=== PATIENT | female | born 1960 | race Caucasian/White ===

== ENCOUNTER 2017-02-27 08:29 | Day surgery (SDC) | payer MEDICAID ==
[2017-02-26 10:01] LABS: CHLORIDE,CL 106 mmol/L (98-110); SODIUM,NA 140 mmol/L (136-146)
[~2017-02-27 08:29] MED LIST: Fluorescein 5 ML Vial ONE; Octyl 2-Cyanoacrylate 1 Tube ONE; Sodium Chloride 0.9% 10 ML Syringe FLUSH PRN; Sodium Chloride 0.9% 2.5 ML Syringe FLUSH PRN; ceFAZolin 2 GM in Premix Bag 1 BAG IV ONE
[2017-02-27] MEDS ORDERED: fentaNYL 100 MCG/2 ML SDV ONE ×2 (09:47→12:08)
[2017-02-27] MEDS ORDERED: HYDROmorphone 2 MG/ML Syringe ONE (09:47)
[2017-02-27] MEDS ORDERED: Propofol 200 MG/20 ML SDV ONE (09:47)
[2017-02-27] MEDS ORDERED: Midazolam 1 MG/ML 2 ML SDV ONE (09:47)
[2017-02-27] MEDS ORDERED: Ketorolac 30 MG/ML SDV ONE (09:50)
[2017-02-27] MEDS ORDERED: Ondansetron 4 MG/2 ML SDV ONE (09:50)
[2017-02-27] MEDS ORDERED: diphenhydrAMINE 50 MG/ML SDV ONE (09:50)
[2017-02-27] MEDS ORDERED: Neostigmine Methylsulfate 1 MG/ML 5 ML Syringe ONE (09:50)
[2017-02-27] MEDS ORDERED: Rocuronium 10 MG/ML 10 ML Syringe ONE (09:50)
[2017-02-27] MEDS ORDERED: Lidocaine 2% 5 ML SDV ONE (09:50)
[2017-02-27] MEDS ORDERED: Metoclopramide 10 MG/2 ML SDV ONE (09:50)
[2017-02-27] MEDS: Lactated Ringers 1,000 ML IV SCH ×2 (09:55→15:29)
--- NOTE | 2017-02-27 10:08 | PCM.PREANE ---
Preanesthetic Assessment - Anesthesia/Transfusion/Family Hx Anesthesia History: Prior Anesthesia Without Reaction Family History of Anesthesia Reaction: No Transfusion History: No Prior Transfusion(s) - Review of Systems General: No Symptoms Pulmonary: No Symptoms Cardiovascular: No Symptoms Gastrointestinal: No Symptoms Neurological: No Symptoms Other: Reports: None - Physical Assessment NPO Status Date: 02/26/17 O2 Sat by Pulse Oximetry: 97 Respiratory Rate: 16 Vital Signs: Last Vital Signs Temp 36.7 C 02/27/17 09:54 Pulse 77 02/27/17 09:54 Resp 16 02/27/17 09:54 BP 148/84 H 02/27/17 09:54 Pulse Ox 97 02/27/17 09:54 Height: 1.68 m Weight: 132.903 kg ASA Class: 2 Mental Status: Alert & Oriented x3 Airway Class: Mallampati = 2 Dentition: Reports: Normal Dentition ROM/Head Extension: Full Lungs: Clear to Auscultation, Normal Respiratory Effort Cardiovascular: Regular Rate, Regular Rhythm - Lab Values: Laboratory Last Values WBC 8.08 K/uL (4.0-11.0) 02/26/17 09:29 RBC 4.87 M/uL (4.30-5.90) 02/26/17 09:29 Hgb 15.0 g/dL (12.0-16.0) 02/26/17 09:29 Hct 43.4 % (36.0-46.0) 02/26/17 09:29 MCV 89.1 fL (80.0-98.0) 02/26/17 09:29 MCH 30.8 pg (27.0-32.0) 02/26/17 09:29 MCHC 34.6 g/dL (31.0-37.0) 02/26/17 09:29 RDW Std Deviation 43.0 fl (28.0-62.0) 02/26/17 09:29 RDW Coeff of [place] 13 % (11.0-15.0) 02/26/17 09:29 Plt Count 236 K/uL (150-400) 02/26/17 09:29 MPV 9.50 fL (7.40-12.00) 02/26/17 09:29 Nucleated RBC % 0.0 /100WBC 02/26/17 09:29 Nucleated RBCs # 0 K/uL 02/26/17 09:29 Sodium 140 mmol/L (136-146) 02/26/17 09:29 Potassium 4.1 mmol/L (3.5-5.1) 02/26/17 09:29 Chloride 106 mmol/L (98-110) 02/26/17 09:29 Carbon Dioxide 24 mmol/L (21-31) 02/26/17 09:29 BUN 12 mg/dL (6.0-23.0) 02/26/17 09:29 Creatinine 0.8 mg/dL (0.6-1.5) 02/26/17 09:29 Est Cr Clr Drug Dosing 74.38 mL/min 02/26/17 09:29 Estimated GFR (MDRD) > 60.0 ml/min 02/26/17 09:29 Glucose 92 mg/dL (60-110) 02/26/17 09:29 Calcium 9.5 mg/dL (8.8-10.8) 02/26/17 09:29 HCG, Qual NEGATIVE (NEG) 02/26/17 09:29 Blood Type O NEGATIVE 02/26/17 09:29 Antibody Screen NEGATIVE 02/26/17 09:29 - Allergies Allergies/Adverse Reactions: Allergies Allergy/AdvReac Type Severity Reaction Status Date / Time amoxicillin [From Augmentin] Allergy Stomach Verified 02/24/17 09:50 Upset clavulanic acid Allergy Stomach Verified 02/24/17 09:50 [From Augmentin] Upset codeine Allergy Stomach Verified 02/24/17 09:50 Upset - Anesthesia Plan Pre-Op Medication Ordered: None - Acknowledgements Anesthesia Type Planned: General Anesthesia Pt an Appropriate Candidate for the Planned Anesthesia: Yes Alternatives and Risks of Anesthesia Discussed w Pt/Guardian: Yes Pt/Guardian Understands and Agrees with Anesthesia Plan: Yes PreAnesthesia Questionnaire HEENT History: Reports: Other (See Below) Other HEENT History: wears glasses Cardiovascular History: Reports: Hypertension, Other (See Below) Other Cardiovascular History: occasionally has edema to lower extremities Gastrointestinal History: Reports: Other (See Below) Other Gastrointestinal History: occasional heartburn Genitourinary History: Reports: None CENSUS ENUMERATOR History: Reports: Musculoskeletal History: Reports: Arthritis Psychiatric History: Reports: None Endocrine/Metabolic History: Reports: Obesity/BMI 30+ Dermatologic History: Reports: Eczema - Past Surgical History Head Surgeries/Procedures: Reports: None Female Surgical History: Reports: Section - SUBSTANCE USE Smoking Status *Q: Former Smoker Tobacco Use Within Last Twelve Months: Cigarettes Recreational Drug Use History: No - HOME MEDS Home Medications: Home Meds Valsartan 80 mg PO DAILY 04/12/16 [History] Ibuprofen [Motrin] 1 - 2 tab PO Q6H PRN 02/24/17 [History] - CURRENT (IN HOUSE) MEDS Current Meds: Current Medications Lactated Ringer's (Ringers, Lactated) 1,000 mls @ 125 mls/hr IV ASDIRECTED JING Last Admin: 02/27/17 09:55 Dose: 125 mls/hr Sodium Chloride (Saline Flush) 10 ml FLUSH ASDIRECTED PRN PRN Reason: Keep Vein Open Sodium Chloride (Saline Flush) 2.5 ml FLUSH ASDIRECTED PRN PRN Reason: Keep Vein Open Discontinued Medications Diphenhydramine HCl (Benadryl) Confirm Administered Dose 50 mg .ROUTE .STK-MED ONE Stop: 02/27/17 09:51 Fentanyl (Sublimaze) Confirm Administered Dose 100 mcg .ROUTE .STK-MED ONE Stop: 02/27/17 09:48 Fluorescein Sodium (Ak-Fluor) Confirm Administered Dose 5 ml .ROUTE .STK-MED ONE Stop: 02/27/17 07:43 Glycopyrrolate () Confirm Administered Dose 1 mg .ROUTE .STK-MED ONE Stop: 02/27/17 09:51 Hydromorphone HCl (Dilaudid) Confirm Administered Dose 2 mg .ROUTE .STK-MED ONE Stop: 02/27/17 09:48 Cefazolin Sodium/Dextrose 2 gm (/ Premix) 50 mls @ 100 mls/hr IV ONETIME ONE Stop: 02/26/17 09:32 Ketorolac Tromethamine (Toradol) Confirm Administered Dose 30 mg .ROUTE .STK- MED ONE Stop: 02/27/17 09:51 Lidocaine (Xylocaine-Mpf 2%) Confirm Administered Dose 5 ml .ROUTE .STK-MED ONE Stop: 02/27/17 09:51 Metoclopramide HCl (Reglan) Confirm Administered Dose 10 mg .ROUTE .STK-MED ONE Stop: 02/27/17 09:51 Midazolam HCl (Versed 1 Mg/Ml) Confirm Administered Dose 2 mg .ROUTE .STK-MED ONE Stop: 02/27/17 09:48 Neostigmine Methylsulfate (Neostigmine) Confirm Administered Dose 5 mg .ROUTE .STK-MED ONE Stop: 02/27/17 09:51 Octyl Cyanoacrylate (Dermabond Advance) Confirm Administered Dose 1 applic .ROUTE .STK-MED ONE Stop: 02/27/17 07:43 Ondansetron HCl (Zofran) Confirm Administered Dose 4 mg .ROUTE .STK-MED ONE Stop: 02/27/17 09:51 Propofol (Diprivan 20 Ml) Confirm Administered Dose 200 mg .ROUTE .STK-MED ONE Stop: 02/27/17 09:48 Rocuronium [place] (Zemuron) Confirm Administered Dose 100 mg .ROUTE .STK-MED ONE Stop: 02/27/17 09:51
[2017-02-27] MEDS ORDERED: ceFAZolin 1 GM Vial ONE (11:19)
[2017-02-27] MEDS ORDERED: Phenylephrine/Normal Saline 100 MCG/ML 10 ML Syringe ONE (11:25)
[2017-02-27] MEDS ORDERED: Promethazine 25 MG/ML SDV IM PRN (12:52)
[2017-02-27] MEDS ORDERED: Ondansetron 4 MG/2 ML SDV IVPUSH PRN (12:52)
[2017-02-27] MEDS ORDERED: Ketorolac 30 MG/ML SDV IVPUSH PRN (12:52)
[2017-02-27] MEDS ORDERED: Ketorolac 30 MG/ML SDV IVPUSH ONE (12:52)
[2017-02-27] MEDS ORDERED: Morphine 4 MG/ML Syringe IVPUSH PRN (12:52)
[2017-02-27] MEDS ORDERED: Acetaminophen/oxyCODONE 325-5 MG Tab PO PRN ×2 (12:52)
[2017-02-27] MEDS ORDERED: Morphine 2 MG/ML Syringe IVPUSH PRN (12:52)
[2017-02-27] MEDS: fentaNYL 100 MCG/2 ML SDV IVPUSH PRN ×4 (13:32→13:57)
--- NOTE | 2017-02-27 13:37 | PCM.POSTAN ---
POST ANESTHESIA ASSESSMENT - MENTAL STATUS Mental Status: Alert, Oriented - RESPIRATORY Respiratory Status: Respiratory Rate WNL, Airway Patent, O2 Saturation Stable - CARDIOVASCULAR CV Status: Pulse Rate WNL, Blood Pressure Stable - GASTROINTESTINAL GI Status: No Symptoms - POST OP HYDRATION Hydration Status: Adequate & Stable
--- NOTE | 2017-02-27 15:30 | PCM.OPNOTE ---
- General Post-Op/Procedure Note Date of Surgery/Procedure: 02/27/17 Operative Procedure(s): Diagnostic laparoscopy, lysis of adhesion Pre Op Diagnosis: Menometrorrhagia Post-Op Diagnosis: Same Anesthesia Technique: General ET Tube Primary Surgeon: Rolan Kong Hadoop Infrastructure Architect: Stacy Escobar EBL in mLs: 100 Complications: None Condition: Good Free Text/Narrative:: Intake & Output 02/27/17 02/27/17 02/27/17 06:59 14:59 22:59 Intake Total 1750 Output Total 100 Balance 1650
--- NOTE | 2017-02-27 16:11 | PCM.DCSUM1 ---
Discharge Summary - Discharge Data Discharge Date: 02/27/17 Discharge Disposition: Home, Self-Care 01 Condition: Good - Patient Summary/Data Operative Procedure(s) Performed: Diagnostic laparoscopy, lysis of adhesion - Patient Instructions Diet: Usual Diet as Tolerated Activity: As Tolerated Wound/Incision Care: Keep Operative Site/Wound Site Clean and Dry Notify Provider of: Fever, Increased Pain, Nausea and/or Vomiting - Discharge Plan Home Medications: Home Meds Valsartan 80 mg PO DAILY 04/12/16 [History] Ibuprofen [Motrin] 1 - 2 tab PO Q6H PRN 02/24/17 [History] - General Info Date of Service: 02/27/17 Functional Status: Reports: Pain Controlled - Review of Systems General: Reports: No Symptoms HEENT: Reports: No Symptoms Pulmonary: Reports: No Symptoms Cardiovascular: Reports: No Symptoms Gastrointestinal: Reports: No Symptoms Genitourinary: Reports: No Symptoms Musculoskeletal: Reports: No Symptoms Skin: Reports: No Symptoms Neurological: Reports: No Symptoms Psychiatric: Reports: No Symptoms - Patient Data Vitals - Most Recent: Last Vital Signs Temp 36.2 C 02/27/17 13:11 Pulse 56 L 02/27/17 14:03 Resp 13 02/27/17 14:03 BP 143/69 H 02/27/17 14:03 Pulse Ox 93 L 02/27/17 14:03 Weight - Most Recent: 132.903 kg I&O - Last 24 hours: Intake & Output 02/27/17 02/27/17 02/27/17 06:59 14:59 22:59 Intake Total 1750 Output Total 100 Balance 1650 Med Orders - Current: Current Medications Lactated Ringer's (Ringers, Lactated) 1,000 mls @ 125 mls/hr IV ASDIRECTED JING Last Admin: 02/27/17 15:29 Dose: 125 mls/hr Ketorolac Tromethamine (Toradol) 30 mg IVPUSH Q6H PRN PRN Reason: Pain (severe 7-10) Stop: 03/04/17 12:52 Morphine Sulfate (Morphine) 2 mg IVPUSH Q2H PRN PRN Reason: Pain (severe 7-10) Morphine Sulfate (Morphine) 4 mg IVPUSH Q2H PRN PRN Reason: Pain (severe 7-10) Ondansetron HCl (Zofran) 4 mg IVPUSH Q6H PRN PRN Reason: Nausea/Vomiting Oxycodone/Acetaminophen (Percocet 325-5 Mg) 1 tab PO Q4H PRN PRN Reason: Pain (moderate 4-6) Oxycodone/Acetaminophen (Percocet 325-5 Mg) 2 tab PO Q4H PRN PRN Reason: Pain (moderate 4-6) Promethazine HCl (Phenergan) 25 mg IM Q6H PRN PRN Reason: Nausea/Vomiting Sodium Chloride (Saline Flush) 10 ml FLUSH ASDIRECTED PRN PRN Reason: Keep Vein Open Sodium Chloride (Saline Flush) 2.5 ml FLUSH ASDIRECTED PRN PRN Reason: Keep Vein Open Discontinued Medications Cefazolin Sodium (Ancef) Confirm Administered Dose 2 gm .ROUTE .STK-MED ONE Stop: 02/27/17 11:20 Diphenhydramine HCl (Benadryl) Confirm Administered Dose 50 mg .ROUTE .STK-MED ONE Stop: 02/27/17 09:51 Fentanyl (Sublimaze) Confirm Administered Dose 100 mcg .ROUTE .STK-MED ONE Stop: 02/27/17 09:48 Fentanyl (Sublimaze) 50 mcg IVPUSH Q5M PRN PRN Reason: Pain (severe 7-10) Stop: 02/27/17 16:00 Last Admin: 02/27/17 13:57 Dose: 50 mcg Fentanyl (Sublimaze) Confirm Administered Dose 100 mcg .ROUTE .STK-MED ONE Stop: 02/27/17 12:09 Fluorescein Sodium (Ak-Fluor) Confirm Administered Dose 5 ml .ROUTE .STK-MED ONE Stop: 02/27/17 07:43 Glycopyrrolate () Confirm Administered Dose 1 mg .ROUTE .STK-MED ONE Stop: 02/27/17 09:51 Hydromorphone HCl (Dilaudid) Confirm Administered Dose 2 mg .ROUTE .STK-MED ONE Stop: 02/27/17 09:48 Cefazolin Sodium/Dextrose 2 gm (/ Premix) 50 mls @ 100 mls/hr IV ONETIME ONE Stop: 02/26/17 09:32 Ketorolac Tromethamine (Toradol) Confirm Administered Dose 30 mg .ROUTE .STK- MED ONE Stop: 02/27/17 09:51 Ketorolac Tromethamine (Toradol) 30 mg IVPUSH ONETIME ONE Stop: 02/27/17 12:53 Lidocaine (Xylocaine-Mpf 2%) Confirm Administered Dose 5 ml .ROUTE .STK-MED ONE Stop: 02/27/17 09:51 Metoclopramide HCl (Reglan) Confirm Administered Dose 10 mg .ROUTE .STK-MED ONE Stop: 02/27/17 09:51 Midazolam HCl (Versed 1 Mg/Ml) Confirm Administered Dose 2 mg .ROUTE .STK-MED ONE Stop: 02/27/17 09:48 Neostigmine Methylsulfate (Neostigmine) Confirm Administered Dose 5 mg .ROUTE .STK-MED ONE Stop: 02/27/17 09:51 Octyl Cyanoacrylate (Dermabond Advance) Confirm Administered Dose 1 applic .ROUTE .STK-MED ONE Stop: 02/27/17 07:43 Ondansetron HCl (Zofran) Confirm Administered Dose 4 mg .ROUTE .STK-MED ONE Stop: 02/27/17 09:51 Phenylephrine HCl (Phenylephrine In Ns 100 Mcg/Ml) Confirm Administered Dose 1 mg .ROUTE .STK-MED ONE Stop: 02/27/17 11:26 Propofol (Diprivan 20 Ml) Confirm Administered Dose 200 mg .ROUTE .STK-MED ONE Stop: 02/27/17 09:48 Rocuronium [place] (Zemuron) Confirm Administered Dose 100 mg .ROUTE .STK-MED ONE Stop: 02/27/17 09:51 - Exam General: Reports: Alert, Oriented HEENT: Reports: Pupils Equal, Pupils Reactive, EOMI, Mucous Membr. Moist/[place] Neck: Reports: Supple Lungs: Reports: Clear to Auscultation, Normal Respiratory Effort Cardiovascular: Reports: Regular Rate, Regular Rhythm GI/Abdominal Exam: Normal Bowel Sounds, Soft, Non-Tender, No Organomegaly, No Distention, No Abnormal Bruit, No Mass, Pelvis Stable (Female) Exam: Normal External Exam, Normal Speculum Exam, Normal Bimanual Exam Rectal (Female) Exam: Normal Exam, Normal Rectal Tone Back Exam: Reports: Normal Inspection, Full Range of Motion Extremities: Normal Inspection, Normal Range of Motion, Non-Tender, No Pedal Edema, Normal Capillary Refill Skin: Reports: Warm, Dry, Intact Wound/Incisions: Reports: Healing Well Neurological: Reports: No New Focal Deficit Psy/Mental Status: Reports: Alert, Normal Affect, Normal Mood *Q Meaningful Use (DIS) - VTE *Q VTE Criteria *Q: - Stroke *Q Stroke Criteria *Q: - AMI *Q AMI Criteria *Q:
[2017-02-27 18:53] VITALS: BP 148/72
--- NOTE | 2017-02-27 19:14 | PCM48HPAN ---
Post Anesthesia Note - EVALUATION WITHIN 48HRS OF ANESTHETIC Vital Signs in Normal Range: Yes Patient Participated in Evaluation: Yes Respiratory Function Stable: Yes Airway Patent: Yes Cardiovascular Function Stable: Yes Hydration Status Stable: Yes Pain Control Satisfactory: Yes Nausea and Vomiting Control Satisfactory: Yes Mental Status Recovered: Yes
--- NOTE | 2017-02-27 21:20 | OR ---
SURGEON: Rolan Kong MD DATE OF PROCEDURE: PREOPERATIVE DIAGNOSES: Pelvic pain and menometrorrhagia. POSTOPERATIVE DIAGNOSES: Pelvic pain and menometrorrhagia. OPERATION PERFORMED: Multiple puncture diagnostic laparoscopy, lysis of adhesion, attempted to do total laparoscopic hysterectomy. REGIONAL ENGAGEMENT CONSULTANT: STEFFANY Ricks. ANESTHESIA: General endotracheal intubation. ESTIMATED BLOOD LOSS: 100 mL. COMPLICATIONS: None. FINDINGS: Extensive pelvic adhesion from her previous section which is done through a midline incision. INDICATION: Refer to the admit note. PROCEDURE IN DETAIL: The patient was brought to the OR, properly identified, and after adequate level of general anesthesia, the patient was placed in lithotomy position with an access to the abdomen and the vagina. The patient prepped and draped in sterile fashion as usual. A Patricio surgical colpotomizer manipulator placed in the uterus for manipulation. Then, the operation shifted abdominally. Stab wound done beneath the umbilicus. Veress needle was placed in the peritoneal cavity and that cavity insufflated with 3.5 L of carbon dioxide, and then utilizing the Visiport technique, a 5-mm trocar was placed beneath the umbilicus under direct vision. Upon entering, it is found that the anterior abdominal wall was densely adhesed to the omentum and the uterus, the top of the uterus was adhesed to the anterior abdominal wall. I manipulated and I was able to put the 10/12 trocar in the left iliac fossa under direct vision and another 5 mm trocar in the right iliac fossa under direct vision. I started the operation by lysing the adhesion of the uterus from the anterior abdominal wall and lysing the bladder adhesion to the anterior abdominal wall and then tried to lyse the adhesion from the omentum to the anterior abdominal wall using the JAIN-7 Harmonic scalpel. After working for about an hour and a half, I lysed the adhesion sufficiently, but to visualize the pelvis and uterus, that her uterus was normal size and she had some adhesion to the bladder, which I lysed earlier, and it was at this time, I felt it is not safe to do her surgery laparoscopically because still there was adhesion in the cul-de-sacs and the posterior part of the uterus and also it is felt that there is no clear visualization of the pelvis with the laparoscope. So, after I decided that this could not be done laparoscopically, I ascertained with the decision whether to do her surgery abdominally. The patient is rather large and still have dense anterior adhesion with anterior abdominal wall and she has a high BMI and I felt that doing midline incision really will increase her morbidity for other problem. The patient is a borderline diabetic and she has COPD. So, after I debated with myself and I decided that it probably is the best approach for the patient at this time to forego doing the hysterectomy and later on if the patient continue to bleed, then I might bring her back to do ablation which could be done safely rather than subject her to a large operation that could increase her morbidity, increase her chance of infection or other problem. After I made that decision, the procedure was ended. The multiple laparoscopic instruments were removed, the vaginal instrument was removed, and the multiple laparoscopic incisions were closed in layer. The patient tolerated the procedure and went to recovery room in stable general condition. MELCHOR / EVANGELINA /[id number]
== END 2017-02-27 18:40 | disposition home or self-care (01) ==
LOC: MW.SDS 08:29 → MW.OB 12:52 → MW.SDS 18:40
PROVIDERS: ATTEND Obstetrics & Gynecology
DX: N73.6 Female pelvic peritoneal adhesions (postinfective) (principal); J44.9 Chronic obstructive pulmonary disease, unspecified; L30.9 Dermatitis, unspecified; K21.9 Gastro-esophageal reflux disease without esophagitis; F17.210 Nicotine dependence, cigarettes, uncomplicated; R60.0 Localized edema; N95.0 Postmenopausal bleeding; N95.1 Menopausal and female climacteric states; I10 Essential (primary) hypertension; E66.01 Morbid (severe) obesity due to excess calories; Z68.42 Body mass index [BMI] 45.0-49.9, adult; Z88.0 Allergy status to penicillin; Z88.1 Allergy status to other antibiotic agents; Z88.5 Allergy status to narcotic agent; Z98.890 Other specified postprocedural states; Z79.899 Other long term (current) drug therapy
CPT/HCPCS: 36415; 58660; 80048; 84703; 85027; 86850; 86900; 86901; A9270; J0690; J1170; J1200; J1885; J2250; J2270; J2405; J2765; J3010; J7120; 00840; J2704

== ENCOUNTER 2018-05-22 16:39 | Emergency (ER) | payer MEDICAID ==
[2018-05-22 17:13] VITALS: BP 212/109
--- NOTE | 2018-05-22 18:13 | EDM.PDOC ---
ED HPI GENERAL MEDICAL PROBLEM - General Chief Complaint: ENT Problem Stated Complaint: SORE THROAT Time Seen by Provider: 05/22/18 17:18 Throat Pain Score (Numeric/FACES): 6 - Related Data Allergies Allergy/AdvReac Type Severity Reaction Status Date / Time amoxicillin [From Augmentin] Allergy Stomach Verified 05/22/18 17:13 Upset clavulanic acid Allergy Stomach Verified 05/22/18 17:13 [From Augmentin] Upset codeine Allergy Stomach Verified 05/22/18 17:13 Upset Home Meds: Home Meds Estradiol 1 patch WEEKLY 05/22/18 [History] Progesterone,Micronized [Progesterone] 1 tab DAILY 05/22/18 [History] Past Medical History HEENT History: Reports: Other (See Below) Other HEENT History: wears glasses Cardiovascular History: Reports: Hypertension, Other (See Below) Other Cardiovascular History: occasionally has edema to lower extremities Gastrointestinal History: Reports: Other (See Below) Other Gastrointestinal History: occasional heartburn Genitourinary History: Reports: None ACUTE CARE PHYSICAL THERAPIST History: Reports: Musculoskeletal History: Reports: Arthritis Psychiatric History: Reports: None Endocrine/Metabolic History: Reports: Obesity/BMI 30+ Dermatologic History: Reports: Eczema - Infectious Disease History Infectious Disease History: Reports: Chicken Pox - Past Surgical History Head Surgeries/Procedures: Reports: None Female Surgical History: Reports: Section Other Endocrine Surgeries/Procedures: low estrogen/progesterone Social & Family History - Family History Family Medical History: Noncontributory - Tobacco Use Smoking Status *Q: Current Every Day Smoker Years of Tobacco use: 36 Packs/Tins Daily: 0.2 - Caffeine Use Caffeine Use: Reports: Coffee - Recreational Drug Use Recreational Drug Use: No ED ROS ENT - Review of Systems Review Of Systems: ROS reveals no pertinent complaints other than HPI. ED EXAM, ENT - Physical Exam Exam: See Below (See history of present illness) Course - Vital Signs Last Recorded V/S: Last Vital Signs Temp 97.1 F 05/22/18 17:11 Pulse 80 05/22/18 17:11 Resp 18 05/22/18 17:11 BP 212/109 H 05/22/18 17:11 Pulse Ox 98 05/22/18 17:11 - Orders/Labs/Meds Orders: Active Orders 24 hr Category Date Time Status CULTURE STREP A CONFIRMATION [RM] Stat Lab 05/22/18 17:30 Results STREP SCRN A RAPID W CULT CONF [RM] Stat Lab 05/22/18 17:30 Results Departure - Departure Time of Disposition: 18:10 Disposition: Home, Self-Care 01 Condition: Good Clinical Impression: Viral URI - Discharge Information *PRESCRIPTION DRUG MONITORING PROGRAM REVIEWED*: No *COPY OF PRESCRIPTION DRUG MONITORING REPORT IN PATIENT RICA: No Referrals: PCP,Unknown [Primary Care Provider] - Additional Instructions: The following information is given to patients seen in the emergency department who are being discharged to home. This information is to outline your options for follow-up care. We provide all patients seen in our emergency department with a follow-up referral. The need for follow-up, as well as the timing and circumstances, are variable depending upon the specifics of your emergency department visit. If you don't have a primary care physician on staff, we will provide you with a referral. We always advise you to contact your personal physician following an emergency department visit to inform them of the circumstance of the visit and for follow-up with them and/or the need for any referrals to a consulting specialist. The emergency department will also refer you to a specialist when appropriate. This referral assures that you have the opportunity for follow-up care with a specialist. All of these measure are taken in an effort to provide you with optimal care, which includes your follow-up. Under all circumstances we always encourage you to contact your private physician who remains a resource for coordinating your care. When calling for follow-up care, please make the office aware that this follow-up is from your recent emergency room visit. If for any reason you are refused follow-up, please contact the [facility] Emergency Department at and asked to speak to the emergency department charge nurse. [facility] [address] [place] [phone] - My Orders Last 24 Hours: My Active Orders 05/22/18 17:30 CULTURE STREP A CONFIRMATION [RM] Stat STREP SCRN A RAPID W CULT CONF [RM] Stat - Assessment/Plan Last 24 Hours: My Active Orders 05/22/18 17:30 CULTURE STREP A CONFIRMATION [RM] Stat STREP SCRN A RAPID W CULT CONF [RM] Stat
== END 2018-05-22 18:35 | disposition home or self-care (01) ==
LOC: MW.ED 16:39
DX: J06.9 Acute upper respiratory infection, unspecified (principal); I10 Essential (primary) hypertension; F17.210 Nicotine dependence, cigarettes, uncomplicated; Z88.1 Allergy status to other antibiotic agents; Z88.5 Allergy status to narcotic agent; Z79.899 Other long term (current) drug therapy
CPT/HCPCS: 87081; 87804; 87880-QW; 99283

== ENCOUNTER 2019-04-18 22:05 | Observation (INO) | payer MEDICAID ==
[2019-04-18] MEDS ORDERED: Aspirin 81 MG Tab.Chew PO ONE (22:34)
[2019-04-18 22:55] LABS: BLOOD UREA NITROGEN,BUN 19 mg/dL (7.0-18.0); CARBON DIOXIDE,CO2 25.3 mmol/L (21.0-32.0); CHLORIDE,CL 103 mmol/L (98-107); GLUCOSE RANDOM 104 mg/dL (74-106); LIPASE 102 U/L (73-393); POTASSIUM,K 3.8 mmol/L (3.5-5.1); SODIUM,NA 139 mmol/L (136-145)
--- NOTE | 2019-04-18 23:24 | CR ---
Indication: Shortness of breath. Technique: PA and lateral views the chest. Comparison: November 05, 2017. Findings: The heart is normal in size. The lungs are clear. No infiltrate, pleural effusion, or pneumothorax is identified. Impression: No acute cardiopulmonary process Dictated by Tere Meneses MD @ Apr 18 2019 11:23PM Signed by Dr. Tere Meneses @ Apr 18 2019 11:23PM
--- NOTE | 2019-04-19 01:14 | EDM.PDOC ---
ED HPI GENERAL MEDICAL PROBLEM - General Chief Complaint: Chest Pain Stated Complaint: CHEST, BACK PAIN SOB Time Seen by Provider: 04/18/19 22:16 - History of Present Illness INITIAL COMMENTS - FREE TEXT/NARRATIVE: HPI 58-year-old morbidly obese female smoker presents for evaluation of poorly characterized heartburn like midline chest pain, initially radiating to his left side, now nonradiating, accompanied by back pain and generalized malaise. No identifiable provoking or relieving symptoms. Symptoms have been present for approximately 4 hours. M/S/F/SocHx notable for: please see HPI; remainder reviewed with patient and in chart. ROS: Negative constitutional, eye, cardiovascular, pulmonary, GI, , MSK, skin , neurologic, psychiatric, endocrine unless noted in the HPI. Exam HR 90, RR 18, BP 213/103, T 35.7C, SaO2 94% on room air. Gen: Pleasant, non-toxic appearing, resting comfortably. HEENT: NC, AT, PEERL, EOMI. Resp: Clear to auscultation bilaterally, normal work of breathing. Card: RRR with no M/R/G, no crackles in lung bases, no pedal edema, no JVD appreciated. GI: NT/ND Vascular: Both ankles, calves, and thighs of equal size, no calf tenderness to palpation bilaterally. MSK: No chest wall TTP. No visible deformities, strength and tone WNL. Skin: Normal color with no visible lesions. Neuro: alert and oriented 3, no facial asymmetry, vision and hearing WNL. Psych: Mood and affect appropriate. Labs / Imaging (pertinent): WBC 10.3, Hb 14.9, Na 139, K 3.8, AST 15, ALT 22, alkaline phosphatase 101, total bilirubin 0.4, lipase one or 2. Troponin <0.050 d-dimer 0.33 EKG: SR at 78 bpm, no HI segment depressions, no new ST segment changes, new LBBB, or T-wave changes that would suggest acute ischemia. CXR: No acute cardiopulmonary disease process. MDM Previous chart, nursing note, and vitals reviewed. A: 58-year-old morbidly obese female smoker presents for evaluation of poorly characterized heartburn like midline chest pain, initially radiating to his left side, now nonradiating, accompanied by back pain and generalized malaise. DDx and Evaluation: * ACS - doubt ACS given a non-ischemic EKG and negative initial troponin, however the patient require serial cardiac enzymes. * UA - unlikely given the atypical history and alternate diagnosis. HEART score value (Hx - 2, EKG - 0, age - 2, risk factors - 2, troponin - 0; 30 day MACE: 12 -16.6%). * Pericarditis - consider pericarditis unlikely given the lack of HI segment depressions as well as the absence of diffuse ST-segment elevations, lack of reduction of pain when supine, and lack of a friction rub. * Myocarditis - unlikely given the negative troponin and an EKG without characteristic HI-segment or ST-segment changes. * Dissection - dissection is unlikely given symptoms, and lack of mediastinal widening. * PE Wells' (Signs & Sx of DVT - 0, PE is #1 or equally likelihood - 0, HR > 100 - 0, immobilization of >=3 days or surgery in last 28 days - 0, prior DVT or PE - 0, hemoptysis - 0, malignancy w/ tx in last 6 mo or palliative - 0) 0; as such the patients negative d-dimer is appropriate for PE rule out/risk stratification. * Mediastinal Air - no evidence by CXR or auscultation. * Pneumothorax - no evidence by CXR or physical exam. * MSK - doubt given lack of reproducibility on exam. * Endocarditis - no identifiable risk factors, patient afebrile, no new murmurs appreciated on exam; doubt. * GI (Esophageal rupture, GERD) - esophageal rupture effectively excluded given the lack of mediastinal widening, non-toxic appearance, and lack of identifiable risk factors. While not definitively excluded, further evaluation of GERD is deferred to an outpatient setting. ED Course: Patient given ASA. BP normalized with rest. Disposition: admitted for cardiac evaluation. Impression: Chest Pain. chest Pain Score (Numeric/FACES): 8 - Related Data Allergies Allergy/AdvReac Type Severity Reaction Status Date / Time amoxicillin [From Augmentin] Allergy Stomach Verified 04/18/19 22:10 Upset clavulanic acid Allergy Stomach Verified 04/18/19 22:10 [From Augmentin] Upset codeine Allergy Stomach Verified 04/18/19 22:10 Upset Home Meds: Home Meds Progesterone, Micronized [Progesterone] 1 tab DAILY 05/22/18 [History] estradioL [Estradiol] 1 patch WEEKLY 05/22/18 [History] Past Medical History HEENT History: Reports: Other (See Below) Other HEENT History: wears glasses Cardiovascular History: Reports: Hypertension, Other (See Below) Other Cardiovascular History: occasionally has edema to lower extremities Respiratory History: Reports: Other (See Below) Other Respiratory History: smoker Gastrointestinal History: Reports: Other (See Below) Other Gastrointestinal History: occasional heartburn Genitourinary History: Reports: None 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: Musculoskeletal History: Reports: Arthritis Psychiatric History: Reports: None Endocrine/Metabolic History: Reports: Obesity/BMI 30+ Oncologic (Cancer) History: Reports: None Dermatologic History: Reports: Eczema - Infectious Disease History Infectious Disease History: Reports: Chicken Pox - Past Surgical History Head Surgeries/Procedures: Reports: None Female Surgical History: Reports: Section Other Endocrine Surgeries/Procedures: low estrogen/progesterone Social & Family History - Family History Family Medical History: Noncontributory - Tobacco Use Smoking Status *Q: Current Every Day Smoker Years of Tobacco use: 25 Packs/Tins Daily: 1 - Caffeine Use Caffeine Use: Reports: None - Recreational Drug Use Recreational Drug Use: No ED ROS GENERAL - Review of Systems Review Of Systems: See Below ED EXAM, GENERAL - Physical Exam Exam: See Below Course - Vital Signs Last Recorded V/S: Last Vital Signs Temp 35.7 C 04/18/19 22:10 Pulse 86 04/19/19 01:00 Resp 16 04/19/19 01:00 BP 143/78 H 04/19/19 01:00 Pulse Ox 97 04/19/19 01:00 - Orders/Labs/Meds Labs: Laboratory Tests 04/18/19 04/18/19 04/18/19 Range/Units 22:22 22:22 22:22 WBC 10.26 (4.0-11.0) K/uL RBC 4.91 (4.30-5.90) M/uL Hgb 14.9 (12.0-16.0) g/dL Hct 42.9 (36.0-46.0) % MCV 87.4 (80.0-98.0) fL MCH 30.3 (27.0-32.0) pg MCHC 34.7 (31.0-37.0) g/dL RDW Std Deviation 43.1 (28.0-62.0) fl RDW Coeff of Henok 14 (11.0-15.0) % Plt Count 216 (150-400) K/uL MPV 9.70 (7.40-12.00) fL Neut % (Auto) 58.4 (48.0-80.0) % Lymph % (Auto) 34.2 (16.0-40.0) % [place] % (Auto) 5.6 (0.0-15.0) % Eos % (Auto) 1.5 (0.0-7.0) % Baso % (Auto) 0.3 (0.0-1.5) % Neut # (Auto) 6.0 H (1.4-5.7) K/uL Lymph # (Auto) 3.5 H (0.6-2.4) K/uL [place] # (Auto) 0.6 (0.0-0.8) K/uL Eos # (Auto) 0.2 (0.0-0.7) K/uL Baso # (Auto) 0.0 (0.0-0.1) K/uL Nucleated RBC % 0.0 /100WBC Nucleated RBCs # 0 K/uL D-Dimer, Quantitative 0.33 (0.0-0.50) mg/L FEU Sodium 139 (136-145) mmol/L Potassium 3.8 (3.5-5.1) mmol/L Chloride 103 (98-107) mmol/L Carbon Dioxide 25.3 (21.0-32.0) mmol/L BUN 19 H (7.0-18.0) mg/dL Creatinine 1.0 (0.6-1.0) mg/dL Est Cr Clr Drug Dosing 58.11 mL/min Estimated GFR (MDRD) 57.1 ml/min Glucose 104 (74-106) mg/dL Calcium 9.4 (8.5-10.1) mg/dL Total Bilirubin 0.4 (0.2-1.0) mg/dL AST 15 (15-37) IU/L ALT 22 (14-63) IU/L Alkaline Phosphatase 101 (46-116) U/L Troponin I < 0.050 (0.000-0.056) ng/mL Total Protein 7.4 (6.4-8.2) g/dL Albumin 3.7 (3.4-5.0) g/dL Globulin 3.7 (2.6-4.0) g/dL Albumin/Globulin Ratio 1.0 (0.9-1.6) Lipase 102 (73-393) U/L Meds: Medications Discontinued Medications Generic Name Dose Route Start Last Admin Trade Name Freq PRN Reason Stop Dose Admin Aspirin 324 mg 04/18/19 22:34 04/18/19 23:24 Aspirin PO 04/18/19 22:35 324 mg ONETIME ONE Administration Departure - Departure Time of Disposition: :14 Disposition: Home, Self-Care 01 Clinical Impression: Chest pain - Discharge Information Referrals: PCP,None [Primary Care Provider] - Sepsis Event Note - Evaluation Sepsis Screening Result: No Definite Risk - Focused Exam Vital Signs: Vital Signs Temp Pulse Resp BP Pulse Ox 04/19/19 01:00 86 16 143/78 H 97 04/18/19 23:30 78 16 176/81 H 95 04/18/19 22:10 35.7 C 90 18 213/103 H 94 L Date Exam was Performed: 04/19/19 Time Exam was Performed: 01:14
[2019-04-19] MEDS ORDERED: Acetaminophen 500 MG Tab PO PRN (03:26)
[2019-04-19 06:49] LABS: HEMOGLOBIN A1C 5.7 % (4.5-6.2)
[2019-04-19 07:25] VITALS: BP 134/75; PULSE 73
--- NOTE | 2019-04-19 08:23 | PCM.HP.2 ---
H&P History of Present Illness - General Date of Service: 04/19/19 Admit Problem/Dx: Admission Diagnosis/Problem Admission Diagnosis/Problem Chest pain Source of Information: Patient History Limitations: Reports: No Limitations - History of Present Illness Initial Comments - Free Text/Narative: This 58 year old female with pmh of obesity presented to the ED last night with complaints of chest pain accompanied by nausea, indigestion, and back pain. She reports she was hanging up clothes with her and started feeling dizzy, lightheaded which progressed to L sided chest pain and radiated to her back along with nausea and somewhat indigestion like feelings. She came to the ED and was noted to have elevated BP, she was given ASA and nothing for her BP. As she calmed down and stopped crying, BP improved as well. She reports she has been feeling well recently. No fevers or chills. No shortness of breath. Reports going through menopause recently and gaining upwards of 20 lbs. She reports smoking 1/2 ppd, rare alcohol use and no recreational drug use. She reports family history on her fathers side of CAD in middle age, including her father and his mother. In the ED Labwork WNL. Troponin negative EKG SR with no ST elevations. CXR negative. BP elevated 160s SBP which came down without medication. She will be admitted for ACS rule out. PCP, Dr Keith. chest Pain Score (Numeric/FACES): 8 - Related Data Allergies/Adverse Reactions: Allergies Allergy/AdvReac Type Severity Reaction Status Date / Time amoxicillin [From Augmentin] Allergy Stomach Verified 04/19/19 02:58 Upset clavulanic acid Allergy Stomach Verified 04/19/19 02:58 [From Augmentin] Upset codeine Allergy Stomach Verified 04/19/19 02:58 Upset Home Medications: Home Meds Progesterone, Micronized [Progesterone] 1 tab DAILY 05/22/18 [History] estradioL [Estradiol] 1 patch WEEKLY 05/22/18 [History] Aspirin 81 mg PO DAILY tab.chew 04/19/19 [Rx] Past Medical History HEENT History: Reports: Other (See Below) Other HEENT History: wears glasses Cardiovascular History: Reports: Hypertension, Other (See Below). Denies: Afib , Blood Clots/VTE/DVT, CAD, High Cholesterol, [place] Other Cardiovascular History: occasionally has edema to lower extremities Respiratory History: Reports: None, Other (See Below). 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: Musculoskeletal History: Reports: Arthritis Psychiatric History: Reports: None Endocrine/Metabolic History: Reports: Obesity/BMI 30+ Oncologic (Cancer) History: Reports: None Dermatologic History: Reports: Eczema - Infectious Disease History Infectious Disease History: Reports: Chicken Pox - Past Surgical History Head Surgeries/Procedures: Reports: None Female Surgical History: Reports: Section Other Endocrine Surgeries/Procedures: low estrogen/progesterone Social & Family History - Family History Family Medical History: Noncontributory - Tobacco Use Smoking Status *Q: Current Every Day Smoker Years of Tobacco use: 20 Packs/Tins Daily: 0.2 - Caffeine Use Caffeine Use: Reports: Coffee, Soda - Recreational Drug Use Recreational Drug Use: No H&P Review of Systems - Review of Systems: Review Of Systems: See Below General: Reports: Fatigue (didnt sleep much overnight.). Denies: Fever, Chills , Malaise Cardiovascular: Reports: No Symptoms. Denies: Chest Pain Gastrointestinal: Reports: No Symptoms. Denies: Abdominal Pain, Black Stool, Bloody Stool, Nausea, Vomiting Genitourinary: Reports: No Symptoms. Denies: Dysuria, Frequency, Burning Skin: Reports: No Symptoms Psychiatric: Reports: No Symptoms Neurological: Reports: No Symptoms Hematologic/Lymphatic: Reports: No Symptoms Immunologic: Reports: No Symptoms Exam - Exam Exam: See Below - Vital Signs Vital Signs: Last Vital Signs Temp 97.0 F 04/19/19 07:23 Pulse 73 04/19/19 07:23 Resp 17 04/19/19 07:23 BP 134/75 04/19/19 07:23 Pulse Ox 100 04/19/19 07:23 Weight: 138.5 kg - Exam General: Alert, Oriented HEENT: Conjunctiva Clear Lungs: Clear to Auscultation, Normal Respiratory Effort Cardiovascular: Regular Rate, Regular Rhythm GI/Abdominal Exam: Normal Bowel Sounds, Soft, Non-Tender Extremities: Normal Inspection, Normal Range of Motion, Non-Tender, No Pedal Edema Neuro Extensive - Mental Status: Alert, Oriented x3 Neuro Extensive - Motor, Sensory, Reflexes: CN II-XII Intact - Patient Data Lab Results Last 24 hrs: Laboratory Results - last 24 hr 04/18/19 04/18/19 04/18/19 Range/Units 22:22 22:22 22:22 WBC 10.26 (4.0-11.0) K/uL RBC 4.91 (4.30-5.90) M/uL Hgb 14.9 (12.0-16.0) g/dL Hct 42.9 (36.0-46.0) % MCV 87.4 (80.0-98.0) fL MCH 30.3 (27.0-32.0) pg MCHC 34.7 (31.0-37.0) g/dL RDW Std Deviation 43.1 (28.0-62.0) fl RDW Coeff of Henok 14 (11.0-15.0) % Plt Count 216 (150-400) K/uL MPV 9.70 (7.40-12.00) fL Neut % (Auto) 58.4 (48.0-80.0) % Lymph % (Auto) 34.2 (16.0-40.0) % [place] % (Auto) 5.6 (0.0-15.0) % Eos % (Auto) 1.5 (0.0-7.0) % Baso % (Auto) 0.3 (0.0-1.5) % Neut # (Auto) 6.0 H (1.4-5.7) K/uL Lymph # (Auto) 3.5 H (0.6-2.4) K/uL [place] # (Auto) 0.6 (0.0-0.8) K/uL Eos # (Auto) 0.2 (0.0-0.7) K/uL Baso # (Auto) 0.0 (0.0-0.1) K/uL Nucleated RBC % 0.0 /100WBC Nucleated RBCs # 0 K/uL D-Dimer, Quantitative 0.33 (0.0-0.50) mg/L FEU Sodium 139 (136-145) mmol/L Potassium 3.8 (3.5-5.1) mmol/L Chloride 103 (98-107) mmol/L Carbon Dioxide 25.3 (21.0-32.0) mmol/L BUN 19 H (7.0-18.0) mg/dL Creatinine 1.0 (0.6-1.0) mg/dL Est Cr Clr Drug Dosing 58.11 mL/min Estimated GFR (MDRD) 57.1 ml/min Glucose 104 (74-106) mg/dL Hemoglobin A1c (4.5-6.2) % Calcium 9.4 (8.5-10.1) mg/dL Total Bilirubin 0.4 (0.2-1.0) mg/dL AST 15 (15-37) IU/L ALT 22 (14-63) IU/L Alkaline Phosphatase 101 (46-116) U/L Troponin I < 0.050 (0.000-0.056) ng/mL Total Protein 7.4 (6.4-8.2) g/dL Albumin 3.7 (3.4-5.0) g/dL Globulin 3.7 (2.6-4.0) g/dL Albumin/Globulin Ratio 1.0 (0.9-1.6) Triglycerides (0-200) mg/dL Cholesterol (50-200) mg/dL LDL Cholesterol, Calc (60-180) mg/dL VLDL Cholesterol (5-55) mg/dL HDL Cholesterol (40-60) mg/dL Cholesterol/HDL Ratio (3.3-6.0) Lipase 102 (73-393) U/L TSH 3rd Generation (0.36-3.74) uIU/mL 04/19/19 04/19/19 04/19/19 Range/Units 03:40 06:30 06:30 WBC (4.0-11.0) K/uL RBC (4.30-5.90) M/uL Hgb (12.0-16.0) g/dL Hct (36.0-46.0) % MCV (80.0-98.0) fL MCH (27.0-32.0) pg MCHC (31.0-37.0) g/dL RDW Std Deviation (28.0-62.0) fl RDW Coeff of Henok (11.0-15.0) % Plt Count (150-400) K/uL MPV (7.40-12.00) fL Neut % (Auto) (48.0-80.0) % Lymph % (Auto) (16.0-40.0) % [place] % (Auto) (0.0-15.0) % Eos % (Auto) (0.0-7.0) % Baso % (Auto) (0.0-1.5) % Neut # (Auto) (1.4-5.7) K/uL Lymph # (Auto) (0.6-2.4) K/uL [place] # (Auto) (0.0-0.8) K/uL Eos # (Auto) (0.0-0.7) K/uL Baso # (Auto) (0.0-0.1) K/uL Nucleated RBC % /100WBC Nucleated RBCs # K/uL D-Dimer, Quantitative (0.0-0.50) mg/L FEU Sodium (136-145) mmol/L Potassium (3.5-5.1) mmol/L Chloride (98-107) mmol/L Carbon Dioxide (21.0-32.0) mmol/L BUN (7.0-18.0) mg/dL Creatinine (0.6-1.0) mg/dL Est Cr Clr Drug Dosing mL/min Estimated GFR (MDRD) ml/min Glucose (74-106) mg/dL Hemoglobin A1c (4.5-6.2) % Calcium (8.5-10.1) mg/dL Total Bilirubin (0.2-1.0) mg/dL AST (15-37) IU/L ALT (14-63) IU/L Alkaline Phosphatase (46-116) U/L Troponin I < 0.050 < 0.050 (0.000-0.056) ng/mL Total Protein (6.4-8.2) g/dL Albumin (3.4-5.0) g/dL Globulin (2.6-4.0) g/dL Albumin/Globulin Ratio (0.9-1.6) Triglycerides 59 (0-200) mg/dL Cholesterol 168 (50-200) mg/dL LDL Cholesterol, Calc 86 (60-180) mg/dL VLDL Cholesterol 11 (5-55) mg/dL HDL Cholesterol 70 H (40-60) mg/dL Cholesterol/HDL Ratio 2.4 L (3.3-6.0) Lipase (73-393) U/L TSH 3rd Generation 1.81 (0.36-3.74) uIU/mL 04/19/19 Range/Units 06:30 WBC (4.0-11.0) K/uL RBC (4.30-5.90) M/uL Hgb (12.0-16.0) g/dL Hct (36.0-46.0) % MCV (80.0-98.0) fL MCH (27.0-32.0) pg MCHC (31.0-37.0) g/dL RDW Std Deviation (28.0-62.0) fl RDW Coeff of Henok (11.0-15.0) % Plt Count (150-400) K/uL MPV (7.40-12.00) fL Neut % (Auto) (48.0-80.0) % Lymph % (Auto) (16.0-40.0) % [place] % (Auto) (0.0-15.0) % Eos % (Auto) (0.0-7.0) % Baso % (Auto) (0.0-1.5) % Neut # (Auto) (1.4-5.7) K/uL Lymph # (Auto) (0.6-2.4) K/uL [place] # (Auto) (0.0-0.8) K/uL Eos # (Auto) (0.0-0.7) K/uL Baso # (Auto) (0.0-0.1) K/uL Nucleated RBC % /100WBC Nucleated RBCs # K/uL D-Dimer, Quantitative (0.0-0.50) mg/L FEU Sodium (136-145) mmol/L Potassium (3.5-5.1) mmol/L Chloride (98-107) mmol/L Carbon Dioxide (21.0-32.0) mmol/L BUN (7.0-18.0) mg/dL Creatinine (0.6-1.0) mg/dL Est Cr Clr Drug Dosing mL/min Estimated GFR (MDRD) ml/min Glucose (74-106) mg/dL Hemoglobin A1c 5.7 (4.5-6.2) % Calcium (8.5-10.1) mg/dL Total Bilirubin (0.2-1.0) mg/dL AST (15-37) IU/L ALT (14-63) IU/L Alkaline Phosphatase (46-116) U/L Troponin I (0.000-0.056) ng/mL Total Protein (6.4-8.2) g/dL Albumin (3.4-5.0) g/dL Globulin (2.6-4.0) g/dL Albumin/Globulin Ratio (0.9-1.6) Triglycerides (0-200) mg/dL Cholesterol (50-200) mg/dL LDL Cholesterol, Calc (60-180) mg/dL VLDL Cholesterol (5-55) mg/dL HDL Cholesterol (40-60) mg/dL Cholesterol/HDL Ratio (3.3-6.0) Lipase (73-393) U/L TSH 3rd Generation (0.36-3.74) uIU/mL Result Diagrams: 04/18/19 22:22 04/18/19 22:22 Brandyn Results Last 24 hrs: Microbiology 04/18/19 23:45 Influenza Type A Antigen Screen - Final Nasopharyngeal Swab NEGATIVE INFLUENZA A VIRUS AG REFERENCE RANGE: NEGATIVE Influenza Type B Antigen Screen - Final NEGATIVE INFLUENZA B VIRUS AG REFERENCE RANGE: NEGATIVE Sepsis Event Note - Evaluation Sepsis Screening Result: No Definite Risk - Focused Exam Vital Signs: Vital Signs Temp Pulse Resp BP BP Pulse Ox 04/19/19 07:23 97.0 F 73 17 134/75 100 04/19/19 04:00 98.4 F 71 18 154/83 H 95 04/19/19 03:00 68 18 169/80 H 96 04/19/19 02:30 96 F 75 18 186/80 H 95 04/19/19 02:10 69 16 153/67 H 96 04/19/19 01:00 86 16 143/78 H 97 04/18/19 23:30 78 16 176/81 H 95 04/18/19 22:10 96.3 F 90 18 213/103 H 94 L Date Exam was Performed: 04/19/19 Time Exam was Performed: 15:32 - Problem List (1) Atypical chest pain SNOMED Code(s): 859907737 ICD Code: R07.89 - OTHER CHEST PAIN Status: Acute (2) Obesity SNOMED Code(s): 140802118, 043871020 ICD Code: E66.9 - OBESITY, UNSPECIFIED Status: Acute (3) Hypertension SNOMED Code(s): 04244921 ICD Code: I10 - ESSENTIAL (PRIMARY) HYPERTENSION Status: Acute Problem List Initiated/Reviewed/Updated: Yes Orders Last 24hrs: Active Orders 24 hr Category Date Time Status Admission Status [Patient Status] [ADT] Stat ADT 04/19/19 01:42 Active Telemetry Monitoring [Cardiac Monitoring] [RC] Q8H Care 04/19/19 03:23 Active Vital Signs [RC] Q4H Care 04/19/19 03:28 Active Heart Healthy Diet [DIET] Diet 04/19/19 Breakfast Active Acetaminophen [Tylenol Extra Strength] Med 04/19/19 03:26 Active 500 mg PO Q6H PRN Aspirin Med 04/19/19 09:00 Active 81 mg PO DAILY atorvaSTATin [Lipitor] Med 04/19/19 21:00 Active 40 mg PO BEDTIME Medication Orders Acetaminophen (Tylenol Extra Strength) 500 mg PO Q6H PRN PRN Reason: Pain Aspirin (Aspirin) 81 mg PO DAILY JING Last Admin: 04/19/19 08:01 Dose: 81 mg Atorvastatin Calcium (Lipitor) 40 mg PO BEDTIME [facility] Assessment/Plan Comment:: This 58 year old female admitted for atypical chest pain and hypertension Gwen was admitted secondary to atypical chest pain. She was monitored overnight, troponins negative x 3, EKG remains SR without ST elevations. No recurrently chest pain or indigestion feelings. She is very eager for discharge today as she did not sleep well overnight here. We discussed at length Blood pressure and monitoring at home as she is borderline here for needing medications and she is honest in saying she doesn't want medications currently. A1c 5.7 and Cholesterol WNL. TSH 1.81. She will be sent home today and will have outpatient stress test arranged. Her and family verbalized understanding of needing further evaluation, as ACS is ruled out. She was counseled on diet changes and exercise to help with weight loss. She is to return to the ED or clinic if concerns should arise. Discharge plan: Follow up with PCP as well as outpatient stress test for further evaluation. - Mortality Measure Prognosis:: Good
[2019-04-19] MEDS ORDERED: Aspirin 81 MG Tab.Chew PO SCH (09:00)
[2019-04-19] MEDS ORDERED: atorvaSTATin 40 MG Tab PO SCH (21:00)
== END 2019-04-19 11:30 | disposition home or self-care (01) ==
LOC: MW.ED 22:05 → MW.MS 04-19 01:42
PROVIDERS: ADMIT Student in an Organized Health Care Education/Training Program; ATTEND Student in an Organized Health Care Education/Training Program
DX: R07.89 Other chest pain (principal); I10 Essential (primary) hypertension; K21.9 Gastro-esophageal reflux disease without esophagitis; M19.90 Unspecified osteoarthritis, unspecified site; F17.210 Nicotine dependence, cigarettes, uncomplicated; E66.9 Obesity, unspecified; Z88.0 Allergy status to penicillin; Z88.5 Allergy status to narcotic agent; Z79.890 Hormone replacement therapy; Z68.42 Body mass index [BMI] 45.0-49.9, adult
CPT/HCPCS: 36415; 71046; 80053; 80061; 83036; 83690; 84443; 84484; 85025; 85379; 87804; 93005; A9270; G0378; 99285-25

== ENCOUNTER 2020-04-02 09:47 | Emergency (ER) | payer MEDICAID ==
[2020-04-02] MEDS ORDERED: Albuterol HFA 18 Gm Inhaler INH ONE (10:13)
--- NOTE | 2020-04-02 10:16 | EDM.PDOC ---
ED HPI GENERAL MEDICAL PROBLEM - General Chief Complaint: Headache Stated Complaint: COUGHING,CONGESTION Time Seen by Provider: 04/02/20 10:00 - History of Present Illness INITIAL COMMENTS - FREE TEXT/NARRATIVE: History of present illness: The 59-year-old female who takes only zinc and vitamin A supplements and no other medicines reports it for 4 days she has cough, congestion, and some difficulty breathing. 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 She wears a mask when she is required to go up. She does not have any prior significant exposure to COVID-19. She does not hav e any other symptoms. [] Review of systems: As per history of present illness and below otherwise all systems reviewed and negative. Past medical history: As per history of present illness and as reviewed below otherwise noncontributory. Surgical history: As per history of present illness and as reviewed below otherwise noncontributory. Social history: No reported history of drug or alcohol abuse. Family history: As per history of present illness and as reviewed below otherwise noncontributory. Physical exam: Constitutional - well developed, well-nourished and in no acute distress HEENT - normocephalic, no evidence of trauma - external nose and mouth normal - no mass in neck and no JVD - mucosae moist EYES - full EOM, PERRL, no icterus - no evidence of inflammation, injection, or drainage Respiratory - no respiratory distress, equal bilateral expansion, lungs clear to auscultation expiratory wheezes throughout Cardiovascular - Regular Rhythm with S1 and S2 appreciated and no murmur, gallop or rub. GI - abdomen soft without distension or organomegaly - normal bowel sounds - no guard or rebound Musculoskeletal no gross deformity of long bones or joints - no tenderness, swelling or edema Neurologic - Alert and oriented times four - CN II-XII grossly intact - motor sensory and coordination symmetrically normal Psychiatric - appropriate mood and affect with normal thought content Hematologic - No petechiae or purpura - mucosa appropriate color and sclera not pale - normal nail bed color and refill Integument - no rash or evidence of trauma - normal turgor Diagnostics: [] Therapeutics: [] Impression: [] Plan: [] Definitive disposition and diagnosis as appropriate pending reevaluation and review of above. - Related Data Allergies Allergy/AdvReac Type Severity Reaction Status Date / Time clavulanic acid Allergy Stomach Verified 04/02/20 09:57 [From Augmentin] Upset codeine Allergy Stomach Verified 04/02/20 09:57 Upset Home Meds: Home Meds methylPREDNISolone [Medrol Dose Pack] 4 mg PO DAILY #21 tab 04/02/20 [Rx] Past Medical History HEENT History: Reports: Other (See Below) Other HEENT History: wears glasses Cardiovascular History: Reports: Hypertension, Other (See Below) Other Cardiovascular History: occasionally has edema to lower extremities Respiratory History: Reports: None, Other (See Below) Other Respiratory History: smoker Gastrointestinal History: Reports: GERD, Other (See Below) Other Gastrointestinal History: occasional heartburn Genitourinary History: Reports: 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: Musculoskeletal History: Reports: Arthritis Psychiatric History: Reports: None Endocrine/Metabolic History: Reports: Obesity/BMI 30+ Oncologic (Cancer) History: Reports: None Dermatologic History: Reports: Eczema - Infectious Disease History Infectious Disease History: Reports: Chicken Pox - Past Surgical History Head Surgeries/Procedures: Reports: None Female Surgical History: Reports: Section Other Endocrine Surgeries/Procedures: low estrogen/progesterone Social & Family History - Family History Family Medical History: No Pertinent Family History - Tobacco Use Tobacco Use Status *Q: Current Some Day Tobacco User Years of Tobacco use: 20 Packs/Tins Daily: 1 - Caffeine Use Caffeine Use: Reports: Coffee - Recreational Drug Use Recreational Drug Use: No ED ROS GENERAL - Review of Systems Review Of Systems: Comprehensive ROS is negative, except as noted in HPI. ED EXAM, GENERAL - Physical Exam Exam: See Below Free Text/Narrative:: Physical exam as in the HPI Course - Vital Signs Text/Narrative:: 11:22 AM patient improved at 02 or questions given and the patient was discharged in satisfactory condition with treatment is as she has allergic bronchitis with bronchospasm Last Recorded V/S: Last Vital Signs Temp 36.1 C 04/02/20 09:59 Pulse 78 04/02/20 09:59 Resp 20 04/02/20 09:59 BP 179/85 H 04/02/20 09:59 Pulse Ox 96 04/02/20 09:59 - Orders/Labs/Meds Orders: Active Orders 24 hr Category Date Time Status RT Post Treatment Assessment [RC] Click to Edit Care 04/02/20 10:13 Active RT Pre-Treatment Assessment [RC] Click to Edit Care 04/02/20 10:13 Active Labs: Laboratory Tests 04/02/20 Range/Units 10:20 Influenza Type A RNA NEGATIVE (NEGATIVE) Influenza Type B RNA NEGATIVE (NEGATIVE) SARS-CoV-2 RNA (LAUREL) NEGATIVE (NEGATIVE) Meds: Medications Discontinued Medications Generic Name Dose Route Start Last Admin Trade Name Toby PRN Reason Stop Dose Admin Albuterol 18 gm 04/02/20 10:13 04/02/20 10:24 Ventolin Hfa INH 04/02/20 10:14 1 puff STAT ONE Administration Departure - Departure Time of Disposition: 11:22 Disposition: Home, Self-Care 01 Condition: Good Clinical Impression: Acute bronchitis - Discharge Information Prescriptions: methylPREDNISolone [Medrol Dose Pack] 4 mg PO DAILY #21 tab Instructions: Acute Bronchitis, Adult, [id number] Referrals: Marion Keith DO [Primary Care Provider] - Forms: ED Department Discharge Additional Instructions: [facility] - Primary Care [address] [place] [id number] [place] [address] The following information is given to patients seen in the emergency department who are being discharged to home. This information is to outline your options for follow-up care. We provide all patients seen in our emergency department with a follow-up referral. The need for follow-up, as well as the timing and circumstances, are variable depending upon the specifics of your emergency department visit. If you don't have a primary care physician on staff, we will provide you with a referral. We always advise you to contact your personal physician following an emergency department visit to inform them of the circumstance of the visit and for follow-up with them and/or the need for any referrals to a consulting specialist. The emergency department will also refer you to a specialist when appropriate. This referral assures that you have the opportunity for follow-up care with a specialist. All of these measure are taken in an effort to provide you with optimal care, which includes your follow-up. Under all circumstances we always encourage you to contact your private physician who remains a resource for coordinating your care. When calling for follow-up care, please make the office aware that this follow-up is from your recent emergency room visit. If for any reason you are refused follow-up, please contact the [facility] Emergency Department at and asked to speak to the emergency department charge nurse. Sepsis Event Note (ED) - Evaluation Sepsis Screening Result: No Definite Risk - Focused Exam Vital Signs: Vital Signs Temp Pulse Resp BP Pulse Ox 04/02/20 09:59 36.1 C 78 20 179/85 H 96 - My Orders Last 24 Hours: My Active Orders 04/02/20 10:13 RT Post Treatment Assessment [RC] Click to Edit RT Pre-Treatment Assessment [RC] Click to Edit - Assessment/Plan Last 24 Hours: My Active Orders 04/02/20 10:13 RT Post Treatment Assessment [RC] Click to Edit RT Pre-Treatment Assessment [RC] Click to Edit
--- NOTE | 2020-04-02 11:04 | CR ---
HISTORY: Cough. TECHNIQUE: One view of the chest. COMPARISON: 04/18/2019. FINDINGS: No focal lung infiltrate or pulmonary edema. No pneumothorax or pleural effusion. Cardiac size and pulmonary vasculature are within normal limits. IMPRESSION: No acute disease. Dictated by Ruddy Murillo MD @ 04/02/2020 11:03:47 AM Dictated by: Ruddy Murillo MD @ 04/02/2020 11:03:52 (Electronically Signed)
[2020-04-02 11:12] LABS: CORONAVIRUS COVID-19 NAA NEGATIVE (NEGATIVE); INFLUENZA A NAA NEGATIVE (NEGATIVE); INFLUENZA B NAA NEGATIVE (NEGATIVE)
[2020-04-02 11:33] VITALS: BP 148/80; PULSE 74
== END 2020-04-02 11:30 | disposition home or self-care (01) ==
LOC: MW.ED 09:47
DX: J20.9 Acute bronchitis, unspecified (principal); I10 Essential (primary) hypertension; M19.90 Unspecified osteoarthritis, unspecified site; F17.210 Nicotine dependence, cigarettes, uncomplicated; E66.9 Obesity, unspecified; Z68.42 Body mass index [BMI] 45.0-49.9, adult; Z88.1 Allergy status to other antibiotic agents; Z88.5 Allergy status to narcotic agent; Z20.828 Contact with and (suspected) exposure to other viral communicable diseases; Z79.899 Other long term (current) drug therapy
CPT/HCPCS: 0240U; 71045; 99283; 99282; J3535-GY

== ENCOUNTER 2021-01-26 12:01 | Emergency (ER) | payer MEDICAID ==
--- NOTE | 2021-01-26 12:38 | EDM.PDOC ---
ED HPI GENERAL MEDICAL PROBLEM - General Chief Complaint: Respiratory Problem Stated Complaint: SOB, COUGHING Time Seen by Provider: 01/26/21 12:03 Source of Information: Reports: Patient History Limitations: Reports: No Limitations - History of Present Illness INITIAL COMMENTS - FREE TEXT/NARRATIVE: HISTORY AND PHYSICAL: History of present illness: Patient is a 60-year-old female who presents to the emergency room with complaints of cough and shortness of breath x 2 weeks. Patient recently started taking Taltz (biologic injection for her psoriatic arthritis) about 6 weeks ago, scheduled injection once every 2 weeks. Patient is concerned she may have an allergic reaction to the biologic. She states her psoriatic arthritis has improved but has noted the shortness of breath and cough. Patient is a daily smoker, long-term 1 pack/day / 30 years. She declines concern for COVID-19, refuses testing. Patient denies any fever, chills, headache, change in vision, syncope or near syncope. Denies any chest pain, back pain, hemoptysis. Denies any abdominal pain, nausea, vomiting, diarrhea, constipation or dysuria. Has not noted any blood in urine or stool. Patient has been eating and drinking appropriately. No recent travel or sick contacts. Review of systems: As per history of present illness and below otherwise all systems reviewed and negative. Past medical history: As per history of present illness and as reviewed below otherwise noncontributory. Surgical history: As per history of present illness and as reviewed below otherwise noncontributory. Social history: See social history for further information Family history: As per history of present illness and as reviewed below otherwise noncontributory. Physical exam: General: Well developed and well nourished. Alert and orientated x 3. Nontoxic in appearance and in no acute distress. Vital signs are stable and have been reviewed by me. Nursing notes were reviewed. HEENT: Atraumatic, normocephalic, pupils equal and reactive bilaterally, negative for conjunctival pallor or scleral icterus, mucous membranes moist, TMs normal bilaterally, throat clear, neck supple, nontender, trachea midline. No drooling or trismus noted. No meningeal signs. No hot potato voice noted. Lungs: Clear to auscultation bilaterally. No wheezes, rales, or rhonchi. Chest nontender. Normal work of breathing, no accessory muscles used. Heart: S1S2, regular rate and rhythm without overt murmur, gallops, or rubs. No JVD. No peripheral edema Abdomen: Soft, nondistended, nontender. Normoactive bowel sounds. Negative for masses or costovertebral tenderness. Skin: Psoriasis noted to lower extremities. Intact, warm, dry. No lesions or rashes noted. Hematologic: No petechiae or purpra. Mucosa appropriate color and normal nail bed color and refill. Extremities: Atraumatic, moves all extremities per self without difficulty or deficits, negative for cords or calf pain. Neurovascular unremarkable. Neuro: Awake, alert, oriented. Cranial nerves II through XII unremarkable. Cerebellum unremarkable. Motor and sensory unremarkable throughout. Exam nonfocal. Psychiatric: Mood and affect are appropriate. Normal thought process. Answering questions appropriately. Please note that the patient was seen and evaluated during the 2019 SARS-CoV-2 novel coronavirus pandemic period. Community viral transmission is ongoing at time of this encounter and the emergency department is operating under pandemic response procedures. Medical Decision Making: Patient is a 60-year-old female who presents to the emergency room with complaints of cough and shortness of breath x2 weeks. She states she recently started taking Taltz, biologic injection for her psoriatic arthritis. Patient states that she is concerned this could be an allergic reaction to this new medication that she started 6 weeks ago. I informed her that there was no specific testing that I was able to do the in the emergency room to confirm or deny if this was an allergic reaction to the medication. She states she does not want to stop taking the Taltz injection as she feels her psoriatic arthritis has improved greatly. She declines COVID-19 testing. She is agreeable to basic labs and chest x-ray. Lab work is unremarkable. Chest x-ray shows mild hyperinflation with chronic interstitial change. No dense consolidation is appreciated. EKG shows no acute or concerning findings. I have talked with the patient about today's findings, in addition to providing specific details for plan of care. We discussed treatment options with her being immunocompromise. Will place on Zithromycin. Reassessment at the time of disposition demonstrates that the patient is in no acute distress. The patient is stable for discharge, counseling was provided and we discussed in great detail signs and symptoms that would prompt them to return to the Emergency Department. Medication, follow up and supportive care measures were reviewed and discussed. Voices understanding and is agreeable to plan of care. Denies any further questions or concerns at this time. Diagnostics: CBC, CMP, Troponin, EKG, D.Dimer, CXR Therapeutics: None Prescription: Zpak Impression: Bronchitis Plan: 1. You were evaluated today on an emergent basis. Your cardiac enzymes, basic lab work, D-dimer (specific for blood clot), and chest x-ray are within normal limits. Your blood pressure was elevated today, this could be due to illness and increased stress of being in the emergency room. I would like you to follow-up/establish with a new primary care provider as you should reevaluate whether or not you want to continue the Taltz injection. Also if your blood pressure continues to remain elevated you may need further management of this. 2. You can alternate Tylenol and ibuprofen as needed for pain and fever management. 3. We encourage you to follow up with your primary care provider and/or recommended specialist in the next few days for re-evaluation and further care/management. 4. If your symptoms should worsen, new symptoms develop or any of the signs and symptoms we discussed should arise please return to the emergency room or call 911 (if needed). Definitive disposition and diagnosis as appropriate pending reevaluation and review of above. - Related Data Allergies Allergy/AdvReac Type Severity Reaction Status Date / Time clavulanic acid Allergy Stomach Verified 01/26/21 12:18 [From Augmentin] Upset codeine Allergy Stomach Verified 01/26/21 12:18 Upset Home Meds: Home Meds Azithromycin [Zithromax] 1 dose PO DAILY 5 Days #6 tab 01/26/21 [Rx] Past Medical History HEENT History: Reports: Other (See Below) Other HEENT History: wears glasses Cardiovascular History: Reports: Hypertension, Other (See Below) Other Cardiovascular History: occasionally has edema to lower extremities Respiratory History: Reports: None Other Respiratory History: smoker Gastrointestinal History: Reports: GERD, Other (See Below) Other Gastrointestinal History: occasional heartburn Genitourinary History: Reports: 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: Musculoskeletal History: Reports: Arthritis Neurological History: Reports: None Psychiatric History: Reports: None Endocrine/Metabolic History: Reports: Obesity/BMI 30+ Hematologic History: Reports: None Immunologic History: Reports: None Oncologic (Cancer) History: Reports: None Dermatologic History: Reports: Eczema - Infectious Disease History Infectious Disease History: Reports: Chicken Pox - Past Surgical History Head Surgeries/Procedures: Reports: None HEENT Surgical History: Reports: None Female Surgical History: Reports: Section Other Endocrine Surgeries/Procedures: low estrogen/progesterone Social & Family History - Family History Family Medical History: No Pertinent Family History - Tobacco Use Tobacco Use Status *Q: Current Every Day Tobacco User Years of Tobacco use: 30 Packs/Tins Daily: 0.3 - Caffeine Use Caffeine Use: Reports: Coffee, Tea - Recreational Drug Use Recreational Drug Use: No ED ROS GENERAL - Review of Systems Review Of Systems: Comprehensive ROS is negative, except as noted in HPI. ED EXAM, GENERAL - Physical Exam Exam: See Below (See dictation) Course - Vital Signs Last Recorded V/S: Last Vital Signs Temp 97.2 F 01/26/21 12:19 Pulse 79 01/26/21 13:30 Resp 20 01/26/21 12:19 BP 179/97 H 01/26/21 13:30 Pulse Ox 96 01/26/21 13:30 - Orders/Labs/Meds Labs: Laboratory Tests 01/26/21 01/26/21 01/26/21 Range/Units 12:38 12:38 12:38 WBC 9.53 (4.0-11.0) K/uL RBC 5.02 (4.30-5.90) M/uL Hgb 14.9 (12.0-16.0) g/dL Hct 43.8 (36.0-46.0) % MCV 87.3 (80.0-98.0) fL MCH 29.7 (27.0-32.0) pg MCHC 34.0 (31.0-37.0) g/dL RDW Std Deviation 42.9 (28.0-62.0) fl RDW Coeff of Henok 14 (11.0-15.0) % Plt Count 228 (150-400) K/uL MPV 9.60 (7.40-12.00) fL Neut % (Auto) 65.6 (48.0-80.0) % Lymph % (Auto) 26.5 (16.0-40.0) % Otero % (Auto) 6.4 (0.0-15.0) % Eos % (Auto) 1.3 (0.0-7.0) % Baso % (Auto) 0.2 (0.0-1.5) % Neut # (Auto) 6.3 H (1.4-5.7) K/uL Lymph # (Auto) 2.5 H (0.6-2.4) K/uL Otero # (Auto) 0.6 (0.0-0.8) K/uL Eos # (Auto) 0.1 (0.0-0.7) K/uL Baso # (Auto) 0.0 (0.0-0.1) K/uL Nucleated RBC % 0.0 /100WBC Nucleated RBCs # 0 K/uL D-Dimer, Quantitative 0.36 (0.0-0.50) mg/L FEU Sodium 143 (136-145) mmol/L Potassium 4.5 (3.5-5.1) mmol/L Chloride 103 (98-107) mmol/L Carbon Dioxide 28.4 (21.0-32.0) mmol/L BUN 13 (7.0-18.0) mg/dL Creatinine 1.0 (0.6-1.0) mg/dL Est Cr Clr Drug Dosing 56.71 mL/min Estimated GFR (MDRD) 56.7 ml/min Glucose 107 H (74-106) mg/dL Calcium 8.9 (8.5-10.1) mg/dL Total Bilirubin 0.4 (0.2-1.0) mg/dL AST 13 L (15-37) IU/L ALT 14 (14-63) IU/L Alkaline Phosphatase 115 (46-116) U/L Troponin I < 0.050 (0.000-0.056) ng/mL Total Protein 7.1 (6.4-8.2) g/dL Albumin 3.5 (3.4-5.0) g/dL Globulin 3.6 (2.6-4.0) g/dL Albumin/Globulin Ratio 1.0 (0.9-1.6) Departure - Departure Time of Disposition: 13:49 Disposition: Home, Self-Care 01 Clinical Impression: Bronchitis - Discharge Information Prescriptions: Azithromycin [Zithromax] 1 dose PO DAILY 5 Days #6 tab Instructions: Acute Bronchitis, Adult, [id number] Referrals: [facility] [Primary Care Provider] - Forms: ED Department Discharge Additional Instructions: The following information is given to patients seen in the emergency department who are being discharged to home. This information is to outline your options for follow-up care. We provide all patients seen in our emergency department with a follow-up referral. The need for follow-up, as well as the timing and circumstances, are variable depending upon the specifics of your emergency department visit. If you don't have a primary care physician on staff, we will provide you with a referral. We always advise you to contact your personal physician following an emergency department visit to inform them of the circumstance of the visit and f or follow-up with them and/or the need for any referrals to a consulting specialist. The emergency department will also refer you to a specialist when appropriate. This referral assures that you have the opportunity for follow-up care with a specialist. All of these measure are taken in an effort to provide you with optimal care, which includes your follow-up. Under all circumstances we always encourage you to contact your private physician who remains a resource for coordinating your care. When calling for follow-up care, please make the office aware that this follow-up is from your recent emergency room visit. If for any reason you are refused follow-up, please contact the [facility] Emergency Department at and asked to speak to the emergency department charge nurse. [facility] Primary [facility] [address] [place] [id number] [place] [address] Thank you for choosing the [facility] emergency department in [place] for your medical needs today. It was a pleasure caring for you. Today you were seen in the emergency department for cough and SOB Your prescription was electronically sent to: [facility] 1. You were evaluated today on an emergent basis. Your cardiac enzymes, basic lab work, D-dimer (specific for blood clot), and chest x-ray are within normal limits. Your blood pressure was elevated today, this could be due to illness and increased stress of being in the emergency room. I would like you to follow-up/establish with a new primary care provider as you should reevaluate whether or not you want to continue the Taltz injection. Also if your blood pressure continues to remain elevated you may need further management of this. 2. You can alternate Tylenol and ibuprofen as needed for pain and fever management. 3. We encourage you to follow up with your primary care provider and/or recommended specialist in the next few days for re-evaluation and further care/management. 4. If your symptoms should worsen, new symptoms develop or any of the signs and symptoms we discussed should arise please return to the emergency room or call 911 (if needed). Sepsis Event Note (ED) - Evaluation Sepsis Screening Result: No Definite Risk - Focused Exam Vital Signs: Vital Signs Temp Pulse Resp BP Pulse Ox 01/26/21 13:30 79 179/97 H 96 01/26/21 13:00 80 179/100 H 97 01/26/21 12:19 97.2 F 81 20 188/99 H 98
--- NOTE | 2021-01-26 12:49 | PCM.EKG ---
#1 Interpretation EKG Date: 01/26/21 Time: 12:40 Rhythm: NSR Rate (Beats/Min): 76 Maxwell: Normal P-Wave: Present QRS: Normal ST-T: Normal QT: Normal VT/PQ Interval: 225 Comparison: No Change (04/18/19) EKG Interpretation Comments: Sinus Rhythm with Type 1 AV block
[2021-01-26 13:19] LABS: BLOOD UREA NITROGEN,BUN 13 mg/dL (7.0-18.0); CARBON DIOXIDE,CO2 28.4 mmol/L (21.0-32.0); CHLORIDE,CL 103 mmol/L (98-107); GLUCOSE RANDOM 107 mg/dL (74-106); POTASSIUM,K 4.5 mmol/L (3.5-5.1); SODIUM,NA 143 mmol/L (136-145)
--- NOTE | 2021-01-26 13:20 | CR ---
Indication: Pain and shortness of breath Comparison: Single view chest April 02, 2020 Technique: Single AP view chest Findings: There is hyperinflation and chronic interstitial change. There is no focal consolidation, effusion, or pneumothorax. The cardiac silhouette is mildly prominent. The bony thorax is grossly intact. Impression: Mild hyperinflation with chronic interstitial change. No dense consolidation is appreciated. Dictated by Sanchez Schultz MD @ 01/26/2021 1:19:10 PM (Electronically Signed)
[2021-01-26 14:23] VITALS: BP 167/85; PULSE 78
== END 2021-01-26 14:20 | disposition home or self-care (01) ==
LOC: MW.ED 12:01
DX: J40 Bronchitis, not specified as acute or chronic (principal); I10 Essential (primary) hypertension; E66.9 Obesity, unspecified; Z68.42 Body mass index [BMI] 45.0-49.9, adult; Z72.0 Tobacco use; Z88.5 Allergy status to narcotic agent; Z88.0 Allergy status to penicillin
CPT/HCPCS: 36415; 71045; 71045-26; 80053; 84484; 85025; 85379; 93005; 99284-25

== ENCOUNTER 2021-05-19 10:48 | Emergency (ER) | payer MEDICAID ==
[2021-05-19 12:31] LABS: CARBON DIOXIDE,CO2 26.6 mmol/L (21.0-32.0)
[2021-05-19 13:05] VITALS: BP 180/99; PULSE 65
== END 2021-05-19 13:08 | disposition home or self-care (01) ==
LOC: MW.ED 10:48
DX: J40 Bronchitis, not specified as acute or chronic (principal); I10 Essential (primary) hypertension; E66.9 Obesity, unspecified; Z68.42 Body mass index [BMI] 45.0-49.9, adult; Z88.5 Allergy status to narcotic agent; Z88.0 Allergy status to penicillin; Z20.822 Contact with and (suspected) exposure to COVID-19
CPT/HCPCS: 36415; 71045; 71045-26; 80053; 85025; 85379; 99285-25

== ENCOUNTER 2021-10-21 04:34 | Emergency (ER) | payer MEDICAID ==
[2021-10-21 04:56] VITALS: BP 155/77; PULSE 77
== END 2021-10-21 05:18 | disposition home or self-care (01) ==
LOC: MW.ED 04:34
DX: J02.9 Acute pharyngitis, unspecified (principal); I10 Essential (primary) hypertension; E66.9 Obesity, unspecified; Z68.42 Body mass index [BMI] 45.0-49.9, adult; Z88.5 Allergy status to narcotic agent; Z88.1 Allergy status to other antibiotic agents
CPT/HCPCS: 99283

== ENCOUNTER 2022-12-19 10:52 | Observation (INO) | payer MEDICAID ==
[2022-12-19] MEDS ORDERED: Sodium Chloride 0.9% 10 ML Syringe FLUSH PRN (12:49)
[2022-12-19] MEDS ORDERED: Sodium Chloride 0.9% 2.5 ML Syringe FLUSH PRN (12:49)
[2022-12-19 13:25] LABS: BASOPHILS PERCENT AUTO 0.3 % (0.0-1.5); EOSINOPHILS ABSOLUTE AUTO 0.1 K/uL (0.0-0.7); HEMATOCRIT 43.7 % (36.0-46.0); HEMOGLOBIN 14.9 g/dL (12.0-16.0); LYMPHOCYTES ABSOLUTE AUTO 2.7 K/uL (0.6-2.4); LYMPHOCYTES PERCENT AUTO 35.4 % (16.0-40.0); MEAN CORPUSCULAR HEMOGLOBIN 30.2 pg (27.0-32.0); MEAN CORPUSCULAR HGB CONC 34.1 g/dL (31.0-37.0); MEAN CORPUSCULAR VOLUME 88.6 fL (80.0-98.0); MONOCYTES ABSOLUTE AUTO 0.5 K/uL (0.0-0.8); MONOCYTES PERCENT AUTO 6.7 % (0.0-15.0); NEUTROPHILS ABSOLUTE AUTO 4.4 K/uL (1.4-5.7); NEUTROPHILS PERCENT AUTO 56.6 % (48.0-80.0); NRBC ABSOLUTE 0 K/uL; PLATELET COUNT,PLT 213 K/uL (150-400); RED BLOOD CELL COUNT 4.93 M/uL (4.30-5.90); WHITE BLOOD CELL COUNT,WBC 7.74 K/uL (4.0-11.0)
[2022-12-19 14:00] LABS: ALBUMIN 3.5 g/dL (3.4-5.0); BILIRUBIN TOTAL 0.4 mg/dL (0.2-1.0); CALCIUM 9.3 mg/dL (8.5-10.1); CARBON DIOXIDE,CO2 30.1 mmol/L (21.0-32.0); CREATININE 1.1 mg/dL (0.6-1.0); EST CRCL DRUG DOSING (CG) 50.28 mL/min; POTASSIUM,K 4.3 mmol/L (3.5-5.1); PROTEIN TOTAL,TP 7.1 g/dL (6.4-8.2)
[2022-12-19] MEDS ORDERED: Iopamidol 755 MG/ML 500 ML Multipack Bottle IVPUSH STA (15:41)
[2022-12-19] MEDS ORDERED: hydrALAZINE 20 MG/ML SDV IVPUSH ONE ×3 (16:23→18:12)
[2022-12-19] MEDS ORDERED: Acetaminophen 325 MG Tab PO PRN (18:30)
[2022-12-19] MEDS ORDERED: Albuterol/Ipratropium 3.0-0.5 MG/3 ML Neb Soln NEB PRN (18:30)
[2022-12-19] MEDS ORDERED: Labetalol 100 MG/20 ML MDV IVPUSH PRN (19:21)
[2022-12-20 05:44] LABS: BASOPHILS PERCENT AUTO 0.2 % (0.0-1.5); EOSINOPHILS ABSOLUTE AUTO 0.1 K/uL (0.0-0.7); EOSINOPHILS PERCENT AUTO 0.9 % (0.0-7.0); HEMATOCRIT 40.7 % (36.0-46.0); HEMOGLOBIN 13.5 g/dL (12.0-16.0); LYMPHOCYTES PERCENT AUTO 31.9 % (16.0-40.0); MEAN CORPUSCULAR HEMOGLOBIN 29.2 pg (27.0-32.0); MEAN CORPUSCULAR HGB CONC 33.2 g/dL (31.0-37.0); MEAN CORPUSCULAR VOLUME 88.1 fL (80.0-98.0); MONOCYTES ABSOLUTE AUTO 0.4 K/uL (0.0-0.8); MONOCYTES PERCENT AUTO 6.8 % (0.0-15.0); NEUTROPHILS ABSOLUTE AUTO 3.8 K/uL (1.4-5.7); NEUTROPHILS PERCENT AUTO 60.2 % (48.0-80.0); NRBC ABSOLUTE 0 K/uL; PLATELET COUNT,PLT 201 K/uL (150-400); RED BLOOD CELL COUNT 4.62 M/uL (4.30-5.90); WHITE BLOOD CELL COUNT,WBC 6.37 K/uL (4.0-11.0)
[2022-12-20 06:20] LABS: ALBUMIN 3.2 g/dL (3.4-5.0); BILIRUBIN TOTAL 0.6 mg/dL (0.2-1.0); CALCIUM 8.7 mg/dL (8.5-10.1); CARBON DIOXIDE,CO2 24.4 mmol/L (21.0-32.0); CREATININE 0.9 mg/dL (0.6-1.0); EST CRCL DRUG DOSING (CG) 61.45 mL/min; POTASSIUM,K 3.9 mmol/L (3.5-5.1); PROTEIN TOTAL,TP 6.4 g/dL (6.4-8.2)
[2022-12-20] MEDS ORDERED: Gadobenate Dimeglumine 529 MG/ML 20 ML SDV IVPUSH STA (07:15)
[2022-12-20] MEDS ORDERED: Polyethylene Glycol 3350 Powder 17 GM Packet PO SCH (09:00)
[2022-12-20] MEDS ORDERED: Pantoprazole 40 MG Tab.CR PO SCH (09:00)
[2022-12-20 11:39] VITALS: BP 146/69; PULSE 79
== END 2022-12-20 11:30 | disposition home or self-care (01) ==
LOC: MW.ED 10:52 → MW.MS 17:21
PROVIDERS: ADMIT Family Medicine; ATTEND Family Medicine
DX: R42 Dizziness and giddiness (principal); I16.0 Hypertensive urgency; I10 Essential (primary) hypertension; M19.90 Unspecified osteoarthritis, unspecified site; E66.9 Obesity, unspecified; F17.210 Nicotine dependence, cigarettes, uncomplicated; Z88.5 Allergy status to narcotic agent; Z88.8 Allergy status to other drugs, medicaments and biological substances; Z79.899 Other long term (current) drug therapy; Z79.82 Long term (current) use of aspirin; Z68.42 Body mass index [BMI] 45.0-49.9, adult
CPT/HCPCS: 36415; 70450; 70496; 70498; 70544; 70549; 70553; 80053; 80061; 84484; 85025; 93005; A9270; A9577; J0360; J3490; Q9967; 96374; 96376; 99284; 99285-25; G0378

== ENCOUNTER 2023-06-10 16:51 | Emergency (ER) | payer MEDICAID ==
[2023-06-10 17:31] VITALS: BP 239/119; PULSE 99
[2023-06-10] MEDS: Lidocaine 4% 1 each Patch TOP STA (19:49)
[2023-06-10] MEDS: Cyclobenzaprine 10 MG Tab PO ONE (19:49)
== END 2023-06-10 19:49 | disposition left against medical advice (07) ==
LOC: MW.ED 16:51
DX: I83.813 Varicose veins of bilateral lower extremities with pain (principal); I10 Essential (primary) hypertension; Z79.82 Long term (current) use of aspirin; Z79.899 Other long term (current) drug therapy
CPT/HCPCS: 93971-26-RT; 93971-RT; 99283

== ENCOUNTER 2024-02-20 08:16 | Day surgery (SDC) | payer MEDICAID ==
[2024-02-20] MEDS ORDERED: propofoL 50 ML ONE (08:46)
[2024-02-20] MEDS: Lactated Ringers 1,000 ML IV SCH (10:15)
[2024-02-20] MEDS ORDERED: Lactated Ringers 1,000 ML IV SCH (10:45)
[2024-02-20 11:00] VITALS: BP 133/78; PULSE 70
== END 2024-02-20 10:55 | disposition home or self-care (01) ==
LOC: MW.SDS 08:16
PROVIDERS: ATTEND Surgery
DX: Z12.11 Encounter for screening for malignant neoplasm of colon (principal); K57.30 Diverticulosis of large intestine without perforation or abscess without bleeding; K63.5 Polyp of colon; J44.9 Chronic obstructive pulmonary disease, unspecified; K21.9 Gastro-esophageal reflux disease without esophagitis; I10 Essential (primary) hypertension; E66.01 Morbid (severe) obesity due to excess calories; Z68.42 Body mass index [BMI] 45.0-49.9, adult; Z87.891 Personal history of nicotine dependence; Z79.899 Other long term (current) drug therapy; Z88.5 Allergy status to narcotic agent
CPT/HCPCS: 45385; J2704; J7120; 00811